=== PATIENT | female | born 1990 | race Caucasian/White ===

== ENCOUNTER 2022-06-20 22:41 | Emergency (ER) | payer OTHER, BC, SELFPAY ==
[2022-06-20 22:48] VITALS: BP 140/87; PULSE 117; RESP 16; TEMP 36.2; O2SAT 98; BMI 31.5
[2022-06-20] MEDS: 0.9 % SODIUM CHLORIDE 1000 ml 1,000 ML IV (23:25)
[2022-06-20] MEDS: diphenhydrAMINE 50 MG/ML inj 25 MG IVP (23:33)
[2022-06-20] MEDS: METOCLOPRAMIDE HCL 10 MG in 0.9 % SODIUM CHLORIDE 100 ml 100 ML 306 MG IVPB (23:34)
[2022-06-21 00:33] LABS: PCR FLU A Negative PCR FLU A (Negative); PCR FLU B Negative PCR FLU B (Negative)
[2022-06-21 00:34] LABS: Basophils Absolute Auto 0.02 K/uL (0.00-0.30); Basophils Percent Auto 0.2 % (0.0-3.0); Eosinophils Absolute Auto 0.04 K/uL (0.00-0.50); Eosinophils Percent Auto 0.4 % (0.0-7.0); Hemoglobin* 15.3 gm/dL (12.0-16.0); Immature Granulocytes Abs Auto 0.01 K/uL (0.00-0.30); Immature Granulocytes Pct Auto 0.1 %; Lymphocytes Percent Auto 2.7 % (20-44); Mean Corpuscular HGB Conc 35 gm/dL (32-36); Mean Corpuscular Hemoglobin 30 pg (26-34); Mean Corpuscular Volume 87 fL (80-100); Monocytes Percent Auto 4.4 % (0.0-11.0); Neutrophils Percent Auto 92.2 % (42.0-72.0); Platelet Count* 286 K/uL (140-440); RDW Coefficient of Variation % 11.3 % (11.5-15.5); Red Blood Count 5.05 m/uL (4.00-5.20); White Blood Count* 10.24 K/uL (4.50-11.00)
[2022-06-21 00:35] LABS: SARS PCR* Negative SARS-CoV-2 (Negative)
[2022-06-21 00:35] LABS: Slide Review Reflex No
[2022-06-21 00:45] LABS: C.Difficile Negative (Negative); CDIFFEPI 027 PRESUMPTIVE NEGATIVE (Negative)
[2022-06-21 00:47] LABS: Chloride* 109 mmol/L (96-114); Potassium* 4.5 mmol/L (3.6-5.1); Sodium* 142 mmol/L (135-149)
[2022-06-21 00:49] LABS: Creatinine* 1.1 mg/dL (0.5-1.5); Est. Creatinine Clearance* 72.72; Estimated Glomerular Filt Rate 69 ml/min; Magnesium* 1.7 mg/dL (1.5-2.6)
[2022-06-21 00:50] LABS: Blood Urea Nitrogen* 19 mg/dL (5-24); Calcium* 9.1 mg/dL (8.4-10.6); Carbon Dioxide* 23 mmol/L (20-32); Glucose* 106 mg/dL (60-115)
[2022-06-21 00:53] LABS: C Reactive Protein* 0.6 mg/dL (0.5-1.0)
[2022-06-21] MEDS: 0.9 % SODIUM CHLORIDE 1000 ml 1,000 ML IV (00:59)
[2022-06-21] MEDS: METOCLOPRAMIDE 10 MG TABLET PO ×2 (01:41→01:57)
[2022-06-21 01:55] VITALS: BP 132/72; PULSE 88; RESP 16; O2SAT 99
--- NOTE | 2022-06-21 06:36 | ED.NAVMDI ---
HPI - Nausea/Vomiting/Diarrhea General Chief complaint: Nausea/Vomiting Stated complaint: vomiting and diarrhea all day Time Seen by Provider: 06/20/22 22:57 History of Present Illness HPI Narrative: 32-year-old woman presenting with spouse to the emergency department with complaint of intractable nausea and vomiting and diarrhea. She would correlate this with ingestion of nutritional/wellness supplement called ashwaghandha. It looks like by my review mL is taken about doubled the usual dosing though there is apparently quite a range of acceptable dosing. Shortly after taking this started to have abdominal cramping and diarrhea and then the vomiting followed. Has not had any melena hematochezia or hematemesis. No fever. Abdomen at this point is quite tender. Can not keeping down. There has been going on now about 11 or 12 hours. 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 Thirsty. She notes that Pcsso typically does not work for her and. Did try Compazine at home but is pretty sure vomited that one up. Related Data Home Medications Medication Instructions Recorded Confirmed bupropion HCl 300 mg 24 hr tablet, 300 mg PO DAILY 06/20/22 06/20/22 extended release (Wellbutrin XL) Previous Rx's Medication Instructions Recorded metoclopramide HCl 10 mg tablet 10 mg PO Q6H PRN nausea/vomiting 06/21/22 (Reglan) #12 tabs Allergies Allergy/AdvReac Type Severity Reaction Status Date / Time Penicillins Allergy Verified 06/20/22 22:48 Review of Systems Status of ROS: Reports: 10 or more systems reviewed and unremarkable except as noted in History and below PFSH PFSH Social History Smoking Status: Never smoker Second hand tobacco smoke exposure: No How often do you have a drink containing alcohol: never AUDIT-C Alcohol total score: 0 Non-prescribed substance use: denies use Exam Narrative: Exam Narrative: Appears to be quite uncomfortable. But pleasant. Seated in the bed initially. Is not tachypneic or labored in breathing. Oropharynx is sticky. Neck is supple without LA. Lungs are clear heart rate is elevated in a regular rhythm. Skin is warm and dry well perfused peripherally no extremity edema. Cranial nerves 2-12 look to be intact. Abdomen is soft and diffusely moderately tender. No peritoneal signs though. Const: Vital Signs, click to edit/add: Vital Signs - 24 hr 06/20/22 22:48 06/21/22 01:55 Temperature 97.2 F L Pulse Rate [Left P ulse Oximeter] 117 H 88 Respiratory Rate 16 16 Blood Pressure [Ri ght Upper Arm] 140/87 H 132/72 Pulse Oximetry 98 99 Oxygen Delivery Me thod Room Air Room Air Documenting provider has reviewed patient's vital signs: yes Course Consultations Consultation #1: Having read/reviewed this supplement affect, I also did consult with poison Control who noted no concerns in particular. Just treating symptoms was recommended. Vital Signs Vital signs: Initial Vital Signs Temperature 97.2 F L 06/20/22 22:48 Temperature Source Temporal Artery Scan 06/20/22 22:48 Pulse Rate 117 H 06/20/22 22:48 Pulse Rhythm 06/20/22 22:48 Respiratory Rate 16 06/20/22 22:48 Blood Pressure 140/87 H 06/20/22 22:48 Blood Pressure Mean 104 06/20/22 22:48 Blood Pressure Position Semi-Fowlers 06/20/22 22:48 Pulse Oximetry 98 06/20/22 22:48 Oxygen Delivery Method 06/20/22 22:48 Vital Signs Temperature 97.2 F L 06/20/22 22:48 Pulse Rate 117 H 06/20/22 22:48 Respiratory Rate 16 06/20/22 22:48 Blood Pressure 140/87 H 06/20/22 22:48 Pulse Oximetry 98 06/20/22 22:48 Oxygen Delivery Method 06/20/22 22:48 Temperature 97.2 F L 06/20/22 22:48 Pulse Rate 88 06/21/22 01:55 Respiratory Rate 16 06/21/22 01:55 Blood Pressure 132/72 06/21/22 01:55 Pulse Oximetry 99 06/21/22 01:55 Oxygen Delivery Method 06/21/22 01:55 MDM - Nausea/Vomiting/Diarrhea MDM Narrative Medical decision making narrative: I think it is reasonable that this supplement as what has caused her vomiting given timing. Will also check for Clostridium difficile and given duration of vomiting and especially diarrhea, will be checking electrolytes. IV is initiated she received a L of normal saline. Overall is a little improved with this and is given another L. She also received diphenhydramine and Reglan for nausea, which markedly diminished. She felt she could depart home. Labs reassuring. Medical Records Attestation: I reviewed the patient's medical records. Lab Data Attestation: I reviewed the patient's lab results. Labs: Lab Results 06/20/22 06/20/22 06/21/22 Range/Units 23:40 23:50 00:25 WBC 10.24 (4.50-11.00) K/uL RBC 5.05 (4.00-5.20) m/uL Hgb 15.3 (12.0-16.0) gm/dL Hct 44.0 (33.0-51.0) % MCV 87 (80-100) fL MCH 30 (26-34) pg MCHC 35 (32-36) gm/dL RDW Coeff of Ginny 11.3 L (11.5-15.5) % Plt Count 286 (140-440) K/uL Neut % (Auto) 92.2 H (42.0-72.0) % Lymph % (Auto) 2.7 L (20-44) % [place] % (Auto) 4.4 (0.0-11.0) % Eos % (Auto) 0.4 (0.0-7.0) % Baso % (Auto) 0.2 (0.0-3.0) % Neut # (Auto) 9.40 H (1.7-7.0) K/uL Lymph # (Auto) 0.30 L (0.90-2.90) K/uL [place] # (Auto) 0.50 (0.00-0.90) K/UL Eos # (Auto) 0.04 (0.00-0.50) K/uL Baso # (Auto) 0.02 (0.00-0.30) K/uL Sodium (135-149) mmol/L Potassium (3.6-5.1) mmol/L Chloride (96-114) mmol/L Carbon Dioxide (20-32) mmol/L BUN (5-24) mg/dL Creatinine (0.5-1.5) mg/dL Estimated Creat Clear Estimated GFR ml/min Glucose (60-115) mg/dL Calcium (8.4-10.6) mg/dL Magnesium (1.5-2.6) mg/dL C-Reactive Protein (0.5-1.0) mg/dL Stl C.difficile Tox PCR Negative (Negative) St C. diff Tox Epid 027 PRESUMPTIVE NEGATIVE (Negative) SARS-CoV-2 (PCR) Negative SARS-CoV-2 (Negative) Influenza Type A (PCR) Negative PCR FLU A (Negative) Influenza Type B (PCR) Negative PCR FLU B (Negative) 06/21/22 06/21/22 Range/Units 00:25 00:25 WBC (4.50-11.00) K/uL RBC (4.00-5.20) m/uL Hgb (12.0-16.0) gm/dL Hct (33.0-51.0) % MCV (80-100) fL MCH (26-34) pg MCHC (32-36) gm/dL RDW Coeff of Ginny (11.5-15.5) % Plt Count (140-440) K/uL Neut % (Auto) (42.0-72.0) % Lymph % (Auto) (20-44) % [place] % (Auto) (0.0-11.0) % Eos % (Auto) (0.0-7.0) % Baso % (Auto) (0.0-3.0) % Neut # (Auto) (1.7-7.0) K/uL Lymph # (Auto) (0.90-2.90) K/uL [place] # (Auto) (0.00-0.90) K/UL Eos # (Auto) (0.00-0.50) K/uL Baso # (Auto) (0.00-0.30) K/uL Sodium 142 (135-149) mmol/L Potassium 4.5 (3.6-5.1) mmol/L Chloride 109 (96-114) mmol/L Carbon Dioxide 23 (20-32) mmol/L BUN 19 (5-24) mg/dL Creatinine 1.1 (0.5-1.5) mg/dL Estimated Creat Clear 72.72 Estimated GFR 69 ml/min Glucose 106 (60-115) mg/dL Calcium 9.1 (8.4-10.6) mg/dL Magnesium 1.7 (1.5-2.6) mg/dL C-Reactive Protein 0.6 (0.5-1.0) mg/dL Stl C.difficile Tox PCR (Negative) St C. diff Tox Epid 027 (Negative) SARS-CoV-2 (PCR) (Negative) Influenza Type A (PCR) (Negative) Influenza Type B (PCR) (Negative) Discharge Plan Discharge Clinical Impression: Vomiting and diarrhea, Dehydration, Adverse effect of herbal medication Patient Disposition: Home w/ Parent or Adult Condition: Improved Additional Instructions: Glad you are feeling better. Consider a slow advance of diet over the next 24-36 hours. Diluted juices, soup broths advancing to thicker soups and smoothies. Rice. [place]. Might try loperamide for diarrhea if needed as long as no blood in stool or fever. Reglan sent to your pharmacy. Prescriptions: New metoclopramide HCl [Reglan] 10 mg tablet 10 mg PO Q6H PRN (Reason: nausea/vomiting) Qty: 12 0RF No Action bupropion HCl [Wellbutrin XL] 300 mg tablet extended release 24 hr 300 mg PO DAILY Follow Up/Referrals: Provider,Not a Local [Primary Care Provider] - Stand Alone Forms: [facility] Info Instructions
== END 2022-06-21 01:59 | disposition home or self-care (01) ==
PROVIDERS: Emergency Provider Family Medicine
DX: R19.7 Diarrhea, unspecified (principal); R11.2 Nausea with vomiting, unspecified; T50.995A Adverse effect of other drugs, medicaments and biological substances, initial encounter
CPT/HCPCS: 36415; 80048; 83735; 85025; 86140; 87493; 87631; 96361; 96374; 96375; 96376; 99284; A9270; J1200; J2765; J7030